=== PATIENT | female | born 1950 | race Caucasian/White ===

== ENCOUNTER 2017-06-03 05:46 | Emergency (ER) | END 2017-06-03 10:20 | disposition short-term general hospital (02) ==

== ENCOUNTER 2017-07-12 22:42 | Emergency (ER) | END 2017-07-13 04:00 | disposition short-term general hospital (02) ==

== ENCOUNTER 2018-06-11 06:14 | Emergency (ER) | payer OTHER, MEDICAID ==
[~2018-06-11] VITALS: Ht 165.1 cm; Wt 90.9 kg
[~2018-06-11 06:14] MED LIST: BACL20TA PO; BISA10SU58 PR; CARV3.12 PO; CLON0.5T14 PO; CRAN3875 PO; CRAN425C6 PO; CYCL10TA7 PO; DEXT1CAP PO; DOCU-144 PO; DULO60CA6 PO; GABA400C14 PO; MAGN400O19 PO; MORP15TA92 PO; MULT-552 PO; NA P118E PR; OXYC15TA PO; PANT40TA3 PO; SENN-36 PO
[2018-06-11 06:26] VITALS: Ht 165.1 cm; Wt 90.9 kg
--- NOTE | 2018-06-11 06:40 | ERD ---
ER Documentation Chief Complaint Chief Complaint ALOC AFTER GIVEN PAIN MED HPI 68-year-old female history of hypertension, hyperlipidemia, chronic pain, anxiety, depression, sepsis and urinary tract infections presents to the ED via rescue ambulance for altered mental status. This morning patient was difficult to arouse and not responding normally and paramedics were called. Prehospital Accu-Chek was 117 mg/dL. There is a report that the patient received an increased dose of pain medication last night but this is unconfirmed. Limited history is obtained from paramedics and patient's daughter states that yesterday the patient was in her usual state of health, responding normally and conversant. Patient has not been complaining of chest pain, palpitations, shortness of breath, abdominal pain, nausea or vomiting. No documented fevers. ROS Obtainable except as per HPI due to the patient's cognitive impairment. Medications Home Meds Reported Medications Gabapentin* (Gabapentin*) 400 Mg Capsule, 800 MG PO TID, #180 CAP 10/09/15 Clonazepam* (Clonazepam*) 0.5 Mg Tablet, 0.5 MG PO BID PRN for ANXIETY, TAB 10/09/15 Dextromethorphan Hbr/Quinidine (NUEDEXTA 20-10 MG CAPSULE) 1 Each Capsule, 1 EACH PO Q12, CAP 10/09/15 Cran/Vitc/Mannose/Inulin/Brom (Uti-Stat Liquid) 3,875 Mg/30 Ml Liquid, 3875 MG PO BID 12/14/14 Sennosides* (Senokot*) 8.6 Mg Tablet, 2 TAB PO DAILY PRN for CONSTIPATION, TAB 12/14/14 Pantoprazole* (Protonix*) 40 Mg Tablet.dr, 40 MG PO AC BREAKFAST, TAB 12/14/14 Oxycodone Hcl* (IR) (Oxycodone Hcl*) 15 Mg Tablet, 15 MG PO Q4H PRN for PAIN, TAB 12/14/14 Multivitamins* (Once Daily*) 1 Tab Tablet, 1 TAB PO DAILY, TAB 12/14/14 Morphine Sulfate* (Ms Contin*) 15 Mg Tablet.sa, 30 MG PO Q8, TAB.SA 12/14/14 Magnesium Hydroxide* (Milk Of Magnesia*) 400 Mg/5 Ml Oral.susp, 30 ML PO Q24H PRN for CONSTIPATION, ML IF OTHER STOOL SOFTENERS ARE INEFFECTIVE 9/26/15 Na Phos,M-B/Na Phos,Di-Ba* (Fleet* Enema) 118 Ml Enema, 118 ML NC Q48H PRN for CONSTIPATION, ENEMA 12/14/14 Bisacodyl* (Dulcolax*) 10 Mg/Supp.rect Supp.rect, 10 MG NC Q24H PRN for CONSTIPATION, SUPP.RECT GIVE IF MILK OF MAGENESIA IS INEFFECTIVE 12/14/14 Duloxetine Hcl* (Cymbalta*) 60 Mg Capsule.dr, 60 MG PO DAILY, CAP 12/14/14 Cranberry Extract (Cranberry) 425 Mg Capsule, 425 MG PO BID 12/14/14 Carvedilol* (Coreg*) 3.125 Mg Tablet, 3.125 MG PO BID, TAB 12/14/14 Docusate Sodium* (Colace*) 100 Mg Capsule, 200 MG PO QHS, CAP HOLD FOR LOOSE BOWEL MOVEMENT 12/14/14 Baclofen* (Baclofen*) 20 Mg Tablet, 20 MG PO QID, TAB 12/14/14 Cyclobenzaprine Hcl* (Cyclobenzaprine Hcl*) 10 Mg Tablet, 5 MG PO BID 11/24/12 Allergies Allergies: Coded Allergies: Penicillins (Verified Allergy, Severe, RASH, 06/11/18) PMhx/Soc History of Surgery: Yes ( x 6, abd hernia repair,gallbladder removal, right hip) Anesthesia Reaction: No Hx Neurological Disorder: No Hx Respiratory Disorders: No Hx Cardiac Disorders: Yes (HTN) Hx Psychiatric Problems: Yes (Depression, Anxiety) Hx Miscellaneous Medical Probl: Yes (Chronic pain syndrome, Osteomyelitis, Contractures) Hx Alcohol Use: No Hx Substance Use: No Hx Tobacco Use: No FmHx Unknown Physical Exam Vitals Vital Signs Date Temp Pulse Resp B/P (MAP) Pulse Ox O2 O2 Flow FiO2 Time Delivery Rate 06/11/18 98.1 72 16 103/88 97 Room Air 11:50 (93) 06/11/18 65 17 111/64 100 Nasal 3.0 10:29 (80) Cannula 06/11/18 98.6 68 16 90/57 (68) 100 Nasal 3.0 10:09 Cannula 06/11/18 69 16 159/80 100 Nasal 3.0 09:06 (106) Cannula 06/11/18 72 14 128/72 100 Nasal 3.0 07:50 (90) Cannula 06/11/18 3 07:45 06/11/18 97.8 87 16 63/39 (47) 90 07:10 06/11/18 97.8 70 16 95/48 (64) 96 06:26 Physical Exam Const: Moderate distress Head: Atraumatic Eyes: Pupils pinpoint reactive. Normal Conjunctiva ENT: Normal External Ears, Nose and Mouth. Neck: Full range of motion. No meningismus. ABD. Resp: Sounds diminished at the bases but clear to auscultation bilaterally Cardio: Regular rate and rhythm, no murmurs Abd: Soft, obese. Non tender, non distended. Normal bowel sounds Skin: No petechiae or rashes Back: No midline or flank tenderness Ext: No cyanosis, or edema Neur: Unresponsive Result Diagram: 06/11/18 0706 06/11/18 0706 Results 24 hrs Laboratory Tests Test 06/11/18 07:00 06/11/18 07:02 06/11/18 07:06 06/11/18 08:28 Lactic Acid Level 2.0 mmol/L Bedside Glucose 98 mg/dL White Blood Count 14.1 10^3/ul Red Blood Count 4.67 10^6/ul Hemoglobin 13.5 g/dl Hematocrit 43.1 % Mean Corpuscular 92.3 fl Volume Mean Corpuscular 28.9 pg Hemoglobin Mean Corpuscular 31.3 g/dl Hemoglobin Concen t Red Cell 14.0 % Distribution Width Platelet Count 306 10^3/UL Mean Platelet 11.0 fl Volume Immature 0.500 % Granulocytes % Neutrophils % 77.0 % Lymphocytes % 17.0 % Monocytes % 4.3 % Eosinophils % 0.8 % Basophils % 0.4 % Nucleated Red 0.0 /100WBC Blood Cells % Immature 0.070 10^3/ul Granulocytes # Neutrophils # 10.9 10^3/ul Lymphocytes # 2.4 10^3/ul Monocytes # 0.6 10^3/ul Eosinophils # 0.1 10^3/ul Basophils # 0.1 10^3/ul Nucleated Red 0.0 10^3/ul Blood Cells # Sodium Level 141 mmol/L Potassium Level 5.1 mmol/L Chloride Level 103 mmol/L Carbon Dioxide 28 mmol/L Level Anion Gap 10 Blood Urea 30 mg/dl Nitrogen Creatinine 1.54 mg/dl Est Glomerular 34 mL/min Filtrat Rate mL/min Glucose Level 105 mg/dl Calcium Level 9.9 mg/dl Total Bilirubin 0.2 mg/dl Direct Bilirubin 0.00 mg/dl Indirect 0.2 mg/dl Bilirubin Aspartate Amino 20 IU/L Transf (AST/SGOT) Alanine 11 IU/L Aminotransferase (ALT/SGPT) Alkaline 100 IU/L Phosphatase Total Protein 7.9 g/dl Albumin 4.0 g/dl Globulin 3.90 g/dl Albumin/Globulin 1.02 Ratio Salicylates Level < 1.0 mg/dl Acetaminophen < 10.0 ug/ml Level Urine Color YELLOW Urine Clarity CLOUDY Urine pH 7.0 Urine Specific 1.010 [place] Urine Ketones NEGATIVE mg/dL Urine Nitrite NEGATIVE mg/dL Urine Bilirubin NEGATIVE mg/dL Urine NEGATIVE mg/dL Urobilinogen Urine Leukocyte 3+ [place]/ul Esterase Urine Microscopic 2 /HPF RBC Urine Microscopic 182 /HPF WBC Urine Bacteria MODERATE /HPF Urine Mucus FEW /HPF Urine Hemoglobin 1+ mg/dL Urine Glucose NEGATIVE mg/dL Urine Total 1+ mg/dl Protein Urine Opiates Positive Screen Urine Negative Barbiturates Urine Negative Amphetamines Screen Urine Negative Benzodiazepines Screen Urine Cocaine Negative Screen Urine Negative Cannabinoids Current Medications Medications Dose Sig/[place] Start Time Status Last (Trade) Ordered Route PRN Stop Time Admin Dose Reason Admin Sodium 2,730 ml @ BOLUS X1 06/11/18 DC 06/11/18 Chloride 1,365 mls/hr ONCE IV 07:00 07:20 06/11/18 08:59 Naloxone 0.4 mg ONCE ONCE 06/11/18 DC 06/11/18 HCl IV 07:00 07:20 (Narcan) 06/11/18 07:01 Ceftriaxone 50 ml @ ONCE ONCE 06/11/18 DC Sodium 100 mls/hr IVPB 09:30 06/11/18 09:30 Aztreonam 50 ml @ ONCE STAT 06/11/18 DC 06/11/18 100 mls/hr IVPB 09:15 10:24 06/11/18 09:44 100 ml @ ONCE STAT 06/11/18 DC 06/11/18 Levofloxacin/ 100 mls/hr IVPB 09:15 09:20 Dextrose 06/11/18 10:14 Procedures/MDM DOCUMENTS REVIEWED: ED nurse, prior ED EKG: Time: 07:03. Sinus rhythm. Ventricular rate 62. No ectopy. Normal NC and QRS. Nonspecific T wave changes but no acute ST elevation or depression. My Interpretation IMAGING: PROCEDURE: CHEST - 1 VIEW CLINICAL INDICATION: 68-year-old female with altered mental status. TECHNIQUE: A single frontal AP semi-erect portable view of the chest was performed. The images were reviewed on a PACS workstation. COMPARISON: CR CHEST 10/09/2015; CR CHEST 11/24/2012 FINDINGS: There is a shallow inspiration accentuating the heart size. Accounting for this, the cardiomediastinal silhouette is within normal limits. There is mild bibasilar subsegmental atelectasis. There is no evidence for focal consolidation. There is no evidence for congestive heart failure. There is no evidence for pneumothorax. Surgical clips are seen within the right upper quadrant from prior cholecystectomy. Degenerative changes are seen within the spine. IMPRESSION: 1. Shallow inspiration with mild bibasilar subsegmental atelectasis. 2. Status post cholecystectomy. 3. Degenerative changes within the spine. .Wally Leyva MD, MD Date Time Electronically viewed and signed by .Wally Leyva MD, on 06/11/2018 07:41 .M/ PROCEDURE: CT Brain without contrast. CLINICAL INDICATION: Altered mental status TECHNIQUE: A CT of the brain was performed on a multidetector CT scanner utilizing axial imaging from the skull base through the vertex without IV contrast. Multiplanar reformatted images were made. Images were reviewed on a PACS workstation. The CTDIvol is 39 mGy and the DLP is 634 mGycm. DICOM images are available. One or more of the following dose reduction techniques were utilized: 1.) Automated exposure control 2.) Adjustment of the mA +/- kV according to patient's size 3.) Use of iterative reconstruction technique. COMPARISON: Or head CT June 03, 2017 FINDINGS: There is no intracranial hemorrhage, mass effect, or midline shift. No extra- axial fluid collection is seen. The ventricles and sulci are normal in size and configuration. There is mild periventricular white matter disease in both cerebral hemispheres. There is no associated mass effect. the parra white matter differentiation appears well-preserved. The visualized paranasal sinuses and osseous structures are grossly unremarkable. IMPRESSION: 1. No evidence of acute intracranial pathology. 2. Mild periventricular white matter disease compatible with chronic small vessel ischemia. .Jori Oviedo MD, MD Date Time Electronically viewed and signed by .Jori Oviedo MD, MD on 06/11/2018 08:51 .A/ [employer]ISION MAKIN-year-old female history of hypertension, hyperlipidemia, chronic pain, anxiety, depression, sepsis and urinary tract infections presents to the ED via rescue ambulance for altered mental status. CBC remarkable for mild leukocytosis. Chemistry reveals elevated BUN/creatinine but no electrolyte abnormalities. Urinalysis consistent with urinary tract infection and culture is pending. Antibiotics initiated. Chest x-ray negative for pneumonia or congestive heart failure. CT of the brain no evidence of hemorrhage, infarct, mass or hydrocephalus. Presentation consistent with accidental opiate overdose as after Narcan 0.4 mg patient became alert and responsive. Blood pressure normalized. After Narcan 0.4 mg IV patient was became alert and symptoms resolved. Transfer to [place] for further evaluation and management. CALLS/CONSULTS: Dr. Paty Casper, Case #[id number]. Accepted for transfer. Counseled daughter regarding diagnosis, diagnostic results and plan for transfer. Departure Diagnosis: Primary Impression: Acute encephalopathy Additional Impressions: Accidental overdose Encounter type: initial encounter Qualified Codes: T50.901A - Poisoning by unspecified drugs, medicaments and biological substances, accidental (unintentional), initial encounter UTI (urinary tract infection) Urinary tract infection type: acute cystitis Hematuria presence: without hematuria Qualified Codes: N30.00 - Acute cystitis without hematuria Condition: Serious VIKTORIYA CROWE MD Jun 11, 2018 06:40
[2018-06-11] MEDS ORDERED: NALOXONE (0.4 MG/ML) INJ IV ONE (07:00)
[2018-06-11] MEDS ORDERED: SOD CHLORIDE 0.9% IV ONE (07:00)
[2018-06-11] MEDS ORDERED: AZTREONAM 1 GM/NS (PMX) 50 ML IVPB STA (09:15)
[2018-06-11] MEDS ORDERED: LEVOFLOXACIN 500MG/D5W (PMX) 100 ML IVPB STA (09:15)
[2018-06-11] MEDS ORDERED: CEFTRIAXONE 1 GM/50 ML (PMX) 50 ML IVPB ONE (09:30)
[2018-06-11 11:50] VITALS: BP 103/88; PULSE 72; RESP 16
== END 2018-06-11 11:50 | disposition home or self-care (01) ==
LOC: E/R 06:14
DX: G93.40 Encephalopathy, unspecified (principal); N30.00 Acute cystitis without hematuria; T50.901A Poisoning by unspecified drugs, medicaments and biological substances, accidental (unintentional), initial encounter; I10 Essential (primary) hypertension
CPT/HCPCS: 36415; 70450; 71045; 80053; 80307; 81001; 82962; 83605; 85025; 87040; 87086; 93005; 96361; 96365; 96375; 99285; J1956; J2310; J7030; J0696